=== PATIENT | male | born 2000 | race Caucasian/White ===

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

== ENCOUNTER 2024-05-17 03:50 | Inpatient (IN) | payer BC, OTHER ==
[2024-05-17] MEDS ORDERED: ONDANSETRON 4 MG/2 ML VIAL ONE ×4 (04:10→14:59)
[2024-05-17] MEDS ORDERED: KETOROLAC TROMETHAMINE 30 MG/1 ML VIAL ONE ×2 (04:10→13:57)
[2024-05-17] MEDS: SODIUM CHLORIDE 1,000 ML IV ONE ×2 (04:21→06:54)
[2024-05-17] MEDS: ONDANSETRON 4 MG/2 ML VIAL IVPUSH ONE ×2 (04:22→08:29)
[2024-05-17] MEDS: KETOROLAC TROMETHAMINE 30 MG/1 ML VIAL IVPUSH ONE (04:22)
[2024-05-17] MEDS: morphine CARPU-JECT 2 MG/1 ML DISP.SYRIN IVPUSH ONE (05:44)
[2024-05-17 05:45] LABS: PH,URINE 7.5 (5.0-8.0); URINE APPEARANCE CLEAR; URINE BILIRUBIN NEGATIVE (NEGATIVE); URINE COLOR YELLOW; URINE GLUCOSE (UA) NEGATIVE (NEGATIVE); URINE KETONE 4+ (NEGATIVE); URINE LEUK ESTERASE NEGATIVE (NEGATIVE); URINE NITRITE NEGATIVE (NEGATIVE); URINE PROTEIN TRACE (NEGATIVE); URINE UROBILINOGEN 0.2 mg/dL (0.2-1.0)
[2024-05-17 05:56] LABS: HEMATOCRIT 49.9 % (35.4-49); HEMOGLOBIN 17.4 GM/dL (11.7-16.9); MCH 30.2 pg (25.7-33.7); MCHC 34.9 g/dl (32.0-35.9); MEAN CELL VOLUME 86.5 fl (80-96); MEAN PLT VOLUME 10.1 fl (7.5-11.1); PLATELET COUNT 271 10^3/uL (134-434); RBC 5.76 M/mm3 (4.00-5.60); RDW 13.1 % (11.9-15.9); WHITE BLOOD COUNT 17.2 K/mm3 (4.0-10.0)
[2024-05-17 05:57] LABS: CHLORIDE 97 mmol/L (98-107); POTASSIUM 4.1 mmol/L (3.5-5.1); SODIUM 136 mmol/L (136-145)
[2024-05-17 05:59] LABS: CALCIUM 10.9 mg/dL (8.5-10.1)
[2024-05-17 06:00] LABS: ANION GAP 14 mmol/L (4-13); BLOOD UREA NITROGEN 8.7 mg/dL (7-18); CO2 25 mmol/L (21-32); GLUCOSE,RANDOM 118 mg/dL (74-106); MAGNESIUM 1.7 mg/dL (1.8-2.4)
[2024-05-17 06:03] LABS: CREATININE 1.1 mg/dL (0.55-1.3); SGOT/AST 18 U/L (15-37); SGPT/ALT 20 U/L (13-61)
[2024-05-17 06:04] LABS: BILIRUBIN,TOTAL 3.7 mg/dL (0.2-1); TOT PROT 8.1 g/dl (6.4-8.2)
[2024-05-17 06:08] LABS: ALK PHOS 64 U/L (45-117)
[2024-05-17] MEDS ORDERED: MAGNESIUM 1GM/D5W - 1 GM/100 ML IVPB IVPB ONE (06:44)
[2024-05-17 06:45] LABS: LACTIC ACID 2.3 mmol/L (0.4-2.0); PHOSPHOROUS 1.1 mg/dL (2.5-4.9)
[2024-05-17] MEDS: MAGNESIUM 1GM/D5W - 1 GM/100 ML IVPB IVPB ONE (06:49)
[2024-05-17] MEDS ORDERED: SODIUM PHOSPHATE - 0 MM in DEXTROSE 5%-WATER - 250 ML IVPB ONE (06:58)
[2024-05-17] MEDS ORDERED: ACETAMINOPHEN INJECTION 100 ML IVPB ONE ×2 (07:59→13:10)
[2024-05-17 08:01] LABS: ALBUMIN 4.5 g/dl (3.4-5.0); BILIRUBIN,TOTAL 2.8 mg/dl (0.2-1); CALCIUM 9.7 mg/dl (8.5-10.1); CREATININE 0.9 mg/dl (0.6-1.3); PHOSPHOROUS 3.8 (2.5-4.9); POTASSIUM 4.4 mmol/L (3.5-5.1); TOT PROT 6.1 g/dl (6.4-8.2)
[2024-05-17] MEDS: ACETAMINOPHEN 1000 MG/100 ML BAG IVPB ONE (08:27)
[2024-05-17] MEDS ORDERED: PIPERACILLIN/TAZOBACTAM 4.5 GM VIAL IVPB ONE (09:24)
[2024-05-17] MEDS: PIPERACILLIN/TAZOB 4.5 GM 4.5 GM in DEXTROSE 5%-WATER 100 ML IVPB ONE (09:28)
[2024-05-17] MEDS: SODIUM PHOSPHATE - 15 MM in DEXTROSE 5%-WATER - 250 ML IVPB ONE (11:24)
[2024-05-17] MEDS ORDERED: morphine CARPU-JECT 2 MG/1 ML DISP.SYRIN IVPUSH PRN (11:44)
[2024-05-17] MEDS: ACETAMINOPHEN 1000 MG/100 ML BAG IVPB PRN (11:52)
[2024-05-17 12:12] VITALS: BMI 23.7
[2024-05-17] MEDS ORDERED: BUPIVACAINE HCL/PF 2.5 MG/ML - 30 ML VIAL IJ ONE (12:19)
[2024-05-17] MEDS ORDERED: FENTANYL CITRATE/PF 50 MCG/ML VIAL ONE ×2 (13:10→15:37)
[2024-05-17] MEDS ORDERED: PROPOFOL 20 ML ONE (13:24)
[2024-05-17] MEDS ORDERED: SUCCINYLCHOLINE CHLORIDE 200 MG/10 ML SYRINGE ONE (13:24)
[2024-05-17] MEDS ORDERED: ROCURONIUM BROMIDE 50 MG/5 ML SYRINGE ONE (13:47)
[2024-05-17] MEDS ORDERED: SUGAMMADEX SODIUM 200 MG/2 ML VIAL ONE (13:57)
[2024-05-17] MEDS ORDERED: DEXAMETHASONE SOD PHOSPHATE 4 MG/1 ML VIAL ONE (13:57)
[2024-05-17] MEDS ORDERED: cefOXitin SODIUM 2 GM VIAL (RESTRICTED TO ID) IVPB ONE (14:11)
[2024-05-17] MEDS: ONDANSETRON 4 MG/2 ML VIAL IVPUSH PRN (15:00)
[2024-05-17] MEDS: CEFAZOLIN SODIUM 2 GM in DEXTROSE 5%-WATER 100 ML IVPB SCH (18:39)
[2024-05-17] MEDS: LACTATED RINGERS SOLUTION 1,000 ML/1,000 ML INFUS.BAG IV SCH (19:53)
[2024-05-18 08:15] LABS: ALBUMIN 3.5 g/dl (3.4-5.0); BILIRUBIN,TOTAL 2.5 mg/dl (0.2-1); CALCIUM 8.9 mg/dl (8.5-10.1); CREATININE 0.9 mg/dl (0.6-1.3); MAGNESIUM 1.7 mg/dL (1.8-2.4); PHOSPHOROUS 2.8 (2.5-4.9); POTASSIUM 3.9 mmol/L (3.5-5.1); TOT PROT 5.1 g/dl (6.4-8.2)
[2024-05-18] MEDS ORDERED: MAGNESIUM SULF 50% (8.12 MEQ/2 ML-1 GM VIAL) IVPB ONE (08:28)
[2024-05-18 09:08] LABS: BASO % 0.1 % (0-2.0); EOS % 0.4 % (0-4.5); HEMATOCRIT 39.4 % (35.4-49); HEMOGLOBIN 13.8 GM/dL (11.7-16.9); LYMPH % 10.3 % (8-40); MCH 30.4 pg (25.7-33.7); MCHC 35.1 g/dl (32.0-35.9); MEAN CELL VOLUME 86.5 fl (80-96); MONO % 10.1 % (3.8-10.2); NEUT % 79.1 % (42.8-82.8); PLATELET COUNT 191 10^3/uL (134-434); RBC 4.55 M/mm3 (4.00-5.60); RDW 13.1 % (11.9-15.9); WHITE BLOOD COUNT 8.3 K/mm3 (4.0-10.0)
[2024-05-18] MEDS: MAGNESIUM 1GM/D5W - 1 GM/100 ML IVPB IVPB ONE (09:27)
[2024-05-18] MEDS: SIMETHICONE 80 MG TAB.CHEW (FP) PO PRN (13:21)
[2024-05-18] MEDS ORDERED: oxyCODONE HCL 5 MG TABLET PO PRN (15:26)
[2024-05-18] MEDS: ACETAMINOPHEN 1000 MG/100 ML BAG IVPB SCH (15:46)
[2024-05-18] MEDS: HYDROmorphone HCL/PF 1 MG/ML VIAL IVPUSH ONE (15:47)
[2024-05-18] MEDS: oxyCODONE HCL 5 MG TABLET PO PRN (23:49)
[2024-05-19 08:49] LABS: HEMATOCRIT 39.6 % (35.4-49); HEMOGLOBIN 13.1 G/dL (11.7-16.9); MCH 29.3 pg (25.7-33.7); MEAN PLT VOLUME 10.2 fl (7.5-11.1); PLATELET COUNT 168.4 10^3/uL (134-434); RBC 4.45 10^6/uL (4.00-5.60); RDW 13.9 % (11.9-15.9); WHITE BLOOD COUNT 8.6 10^3/uL (4.0-10.8)
[2024-05-19 09:47] LABS: ALBUMIN 3.3 g/dl (3.4-5.0); CALCIUM 8.6 mg/dl (8.5-10.1); MAGNESIUM 1.7 mg/dL (1.8-2.4); PHOSPHOROUS 2.2 (2.5-4.9); POTASSIUM 3.7 mmol/L (3.5-5.1)
[2024-05-19 10:03] LABS: BILIRUBIN,TOTAL 1.7 mg/dl (0.2-1)
[2024-05-19] MEDS ORDERED: ONDANSETRON 4 MG/2 ML VIAL IVPUSH PRN (10:04)
[2024-05-19] MEDS: MAGNESIUM OXIDE 400 MG TABLET (FP) PO ONE (11:32)
[2024-05-19] MEDS: NAPH,MB-DB/K PH,MBDB POWDER PACKET PO ONE (11:32)
[2024-05-19] MEDS ORDERED: ACETAMINOPHEN 500 MG TABLET (FP) PO PRN (15:14)
[2024-05-19] MEDS: IBUPROFEN 600 MG TABLET (FP) PO SCH ×2 (16:22→16:51)
[2024-05-19] MEDS: ACETAMINOPHEN 500 MG TABLET (FP) PO SCH (19:48)
[2024-05-20 09:52] VITALS: BP 103/61; PULSE 60; RESP 18; TEMP 98.2
== END 2024-05-20 13:56 | disposition home or self-care (01) | DRG 399 ==
LOC: FER 03:50 → FM/S 08:39
PROVIDERS: ADMIT Internal Medicine; ATTEND Internal Medicine
PROC: 0W9G4ZZ Drainage of Peritoneal Cavity, Percutaneous Endoscopic Approach (ICD-10-PCS; 2024-05-17)
PROC: 3E1M48Z Irrigation of Peritoneal Cavity using Irrigating Substance, Percutaneous Endoscopic Approach (ICD-10-PCS; 2024-05-17)
PROC: 0DTJ4ZZ Resection of Appendix, Percutaneous Endoscopic Approach (ICD-10-PCS; principal; 2024-05-17 13:58)
DX: K35.33 Acute appendicitis with perforation, localized peritonitis, and gangrene, with abscess (principal)
CPT/HCPCS: 36415; 74177-TC; 80053; 81003; 82010; 83036; 83605; 83690; 83735; 84100; 85025; 85027; 87070; 87075; 87186; 87205; 88304-TC; 94760; 99285-25; J0131; Q9967